=== PATIENT | female | born 1955 | race Caucasian/White ===

== ENCOUNTER 2021-06-29 10:54 | Emergency (ER) | payer MEDICARE, OTHER ==
[2021-06-30 01:42] LABS: SARS-CoV-2 PCR by NAA DETECTED (NotDetected)
== END 2021-06-29 11:21 | disposition home or self-care (01) ==
LOC: BURERS 10:54
DX: U07.1 COVID-19 (principal); I10 Essential (primary) hypertension
CPT/HCPCS: 99283; U0003; U0005